=== PATIENT | male | born 1955 | race Caucasian/White ===

== ENCOUNTER 2018-01-16 18:31 | Emergency (ER) | payer OTHER ==
[2018-01-16] MEDS ORDERED: Diatrizoate Meglumine/Diatrizoate Sodium 37% 30 ML Bottle PO ONE (19:39)
[2018-01-16] MEDS ORDERED: Iopamidol 755 Mg/ML 100 ML Bottle IV ONE (19:39)
--- NOTE | 2018-01-16 21:45 | EDM.PDOC ---
ED HPI GENERAL MEDICAL PROBLEM - General Chief Complaint: Abdominal Pain Stated Complaint: SLOWER ADB PAIN Time Seen by Provider: 01/16/18 18:45 Source of Information: Reports: Patient History Limitations: Reports: No Limitations - History of Present Illness INITIAL COMMENTS - FREE TEXT/NARRATIVE: 62 y.o.w.m s/p joce inguinal hernia repair, appendectomy, came to the ed because of pain at his right lower quadrant of his abdomen. Pt stated, it feels to him like a inguinal hernia again. Pain is worse in upright position. No N/V/D no dizziness or any other acute medical issues. Pt did not take any pain meds. BP 147/74 puls 76 RR 20 Pulseox 98 Temp 36.8 Onset Date: 01/12/18 Onset Time: 07:00 Duration: Day(s):, Intermittent, Recurring Location: Reports: Abdomen Quality: Reports: Ache, Burning, Dull Severity: Mild Improves with: Reports: Rest Worsens with: Reports: Movement Context: Reports: Other (S/P right and left inguinal hernia repair in the distent past. ) Right Groin Pain Score (Numeric/FACES): 5 - Related Data Allergies Allergy/AdvReac Type Severity Reaction Status Date / Time esomeprazole magnesium Allergy Hives Verified 01/16/18 18:49 [From Nexium] meperidine HCl [From Demerol] Allergy Shortness Verified 01/16/18 18:49 of Breath Home Meds: Home Meds Metoprolol Succinate [Toprol XL 100mg] 100 mg PO BEDTIME #30 tab.er 10/12/16 [Rx ] Aspirin [Halfprin] 81 mg PO BEDTIME 01/16/18 [History] Cholecalciferol (Vitamin D3) [Vitamin D] 5,000 unit PO BEDTIME 01/16/18 [History ] Famotidine 40 mg PO BEDTIME 01/16/18 [History] Imipramine HCl 25 mg PO BEDTIME 01/16/18 [History] Past Medical History Cardiovascular History: Reports: Hypertension - Past Surgical History HEENT Surgical History: Reports: Other (See Below) GI Surgical History: Reports: Appendectomy, Hernia, Inguinal Social & Family History - Tobacco Use Smoking Status *Q: Never Smoker Years of Tobacco use: 15 Packs/Tins Daily: 1 Used Tobacco, but Quit: Yes Month Tobacco Last Used: UNKNOWN Second Hand Smoke Exposure: No - Caffeine Use Caffeine Use: Reports: Coffee - Recreational Drug Use Recreational Drug Use: No ED ROS GENERAL - Review of Systems Review Of Systems: See Below Constitutional: Reports: No Symptoms HEENT: Reports: No Symptoms Respiratory: Reports: No Symptoms Cardiovascular: Reports: No Symptoms Endocrine: Reports: No Symptoms GI/Abdominal: Reports: Abdominal Pain (Right lower abdomen) : Reports: No Symptoms Musculoskeletal: Reports: No Symptoms Skin: Reports: No Symptoms Neurological: Reports: No Symptoms Psychiatric: Reports: No Symptoms Hematologic/Lymphatic: Reports: No Symptoms Immunologic: Reports: No Symptoms ED EXAM, GI/ABD - Physical Exam Exam: See Below Exam Limited By: No Limitations General Appearance: Alert, WD/WN, Mild Distress Eyes: Bilateral: Normal Appearance Ears: Normal External Exam Nose: Normal Inspection Throat/Mouth: Normal Inspection, Normal Lips Head: Atraumatic, Normocephalic Neck: Normal Inspection, Supple, Non-Tender Respiratory/Chest: No Respiratory Distress, Lungs Clear, Normal Breath Sounds Cardiovascular: Normal Peripheral Pulses, Regular Rate, Rhythm, No Edema GI/Abdominal Exam: No Mass, Hernia (possible right sided inguinal hernia), Hepatomegaly (Male) Exam: Hernia (possible right side) Rectal (Males) Exam: Deferred Back Exam: Normal Inspection Extremities: Normal Inspection Neurological: Alert, Oriented, CN II-XII Intact, Normal Cognition, Normal Gait Psychiatric: Normal Affect, Normal Mood Skin Exam: Warm, Dry, Intact, Normal Color, No Rash Lymphatic: No Adenopathy Course - Vital Signs Text/Narrative:: 62 y.o.w.m s/p joce inguinal hernia repair, appendectomy, came to the ed because of pain at his right lower quadrant of his abdomen. Pt stated, it feels to him like a inguinal hernia again. Pain is worse in upright position. No N/V/D no dizziness or any other acute medical issues. Pt did not take any pain meds. BP 147/74 puls 76 RR 20 Pulseox 98 Temp 36.8 PE: WNWD W M with R L Q abd. pain, S/P appendectomy S/P inguinal Hernia repair on both sides Labs: CBC nl BMP pos for K 3.2 Imaging: Sigmoid diverticulosis, Hepatomegaly, enlarged prostate, Constipation, Divrticula in bladder, No hernoia was seen Impression:Sigmoid diverticulosis, Hepatomegaly, enlarged prostate, Constipation , Divrticula in bladder. Hypokalemia, dehydration Tx: Potassium, Pt refused pain meds Plan: D/C with instructions Last Recorded V/S: Last Vital Signs Temp 36.8 C 01/16/18 21:47 Pulse 81 01/16/18 21:47 Resp 15 01/16/18 21:47 BP 136/88 01/16/18 21:47 Pulse Ox 100 01/16/18 21:47 - Orders/Labs/Meds Orders: Active Orders 24 hr Category Date Time Status Abdomen Pelvis w Cont [CT] Stat Exams 01/16/18 18:43 Ordered Labs: Laboratory Tests 01/16/18 01/16/18 01/16/18 Range/Units 18:53 18:53 18:53 WBC 8.8 (4.5-12.0) X10-3/uL RBC 4.99 (4.30-5.75) x10(6)uL Hgb 14.3 (11.5-15.5) g/dL Hct 42.0 (30.0-51.3) % MCV 84.2 (80-96) fL MCH 28.7 (27.7-33.6) pg MCHC 34.1 (32.2-35.4) g/dL RDW 12.3 (11.5-15.5) % Plt Count 215 (125-369) X10(3)uL MPV 9.0 (7.4-10.4) fL Neut % (Auto) 46.8 (46-82) % Lymph % (Auto) 39.5 H (13-37) % [place] % (Auto) 11.6 (4-12) % Eos % (Auto) 1 (1.0-5.0) % Baso % (Auto) 1 (0-2) % Neut # (Auto) 4.1 (1.6-8.3) # Lymph # (Auto) 3.5 (0.6-5.0) # [place] # (Auto) 1.0 (0.0-1.3) # Eos # (Auto) 0.1 (0.0-0.8) # Baso # (Auto) 0.1 (0.0-0.2) # PT 10.6 (8.7-11.1) INR 1.05 (0.89-1.13) Sodium 143 (135-145) mmol/L Potassium 3.2 L (3.5-5.3) mmol/L Chloride 106 (100-110) mmol/L Carbon Dioxide 24 (21-32) mmol/L BUN 22 H (7-18) mg/dL Creatinine 0.8 (0.70-1.30) mg/dL Est Cr Clr Drug Dosing TNP Estimated GFR (MDRD) > 60 (>60) BUN/Creatinine Ratio 27.5 H (9-20) Glucose 103 (80-116) mg/dL Calcium 8.2 L (8.6-10.2) mg/dL Urine Color (YELLOW) Urine Appearance (CLEAR) Urine pH (5.0-6.5) Ur Specific [place] (1.010-1.025) Urine Protein (NEGATIVE) mg/dL Urine Glucose (UA) (NEGATIVE) mg/dL Urine Ketones (NEGATIVE) mg/dL Urine Occult Blood (NEGATIVE) Urine Nitrite (NEGATIVE) Urine Bilirubin (NEGATIVE) Urine Urobilinogen (NEGATIVE) mg/dL Ur Leukocyte Esterase (NEGATIVE) Urine RBC (0) Urine WBC (0) Ur Squamous Epith Cells (NS,R,O) Urine Bacteria (NS) 01/16/18 Range/Units 19:03 WBC (4.5-12.0) X10-3/uL RBC (4.30-5.75) x10(6)uL Hgb (11.5-15.5) g/dL Hct (30.0-51.3) % MCV (80-96) fL MCH (27.7-33.6) pg MCHC (32.2-35.4) g/dL RDW (11.5-15.5) % Plt Count (125-369) X10(3)uL MPV (7.4-10.4) fL Neut % (Auto) (46-82) % Lymph % (Auto) (13-37) % [place] % (Auto) (4-12) % Eos % (Auto) (1.0-5.0) % Baso % (Auto) (0-2) % Neut # (Auto) (1.6-8.3) # Lymph # (Auto) (0.6-5.0) # [place] # (Auto) (0.0-1.3) # Eos # (Auto) (0.0-0.8) # Baso # (Auto) (0.0-0.2) # PT (8.7-11.1) INR (0.89-1.13) Sodium (135-145) mmol/L Potassium (3.5-5.3) mmol/L Chloride (100-110) mmol/L Carbon Dioxide (21-32) mmol/L BUN (7-18) mg/dL Creatinine (0.70-1.30) mg/dL Est Cr Clr Drug Dosing Estimated GFR (MDRD) (>60) BUN/Creatinine Ratio (9-20) Glucose (80-116) mg/dL Calcium (8.6-10.2) mg/dL Urine Color Yellow (YELLOW) Urine Appearance Clear (CLEAR) Urine pH 5.0 (5.0-6.5) Ur Specific [place] 1.025 (1.010-1.025) Urine Protein Negative (NEGATIVE) mg/dL Urine Glucose (UA) Normal (NEGATIVE) mg/dL Urine Ketones Negative (NEGATIVE) mg/dL Urine Occult Blood Negative (NEGATIVE) Urine Nitrite Negative (NEGATIVE) Urine Bilirubin Negative (NEGATIVE) Urine Urobilinogen Normal (NEGATIVE) mg/dL Ur Leukocyte Esterase Negative (NEGATIVE) Urine RBC 0-5 (0) Urine WBC 0-5 (0) Ur Squamous Epith Cells Rare (NS,R,O) Urine Bacteria Occasional H (NS) Meds: Medications Discontinued Medications Generic Name Dose Route Start Last Admin Trade Name Freq PRN Reason Stop Dose Admin Diatrizoate Meglum/Diatrizoate Sod 30 ml 01/16/18 19:39 01/16/18 20:49 Gastrografin 37% PO 01/16/18 19:40 30 ml . DIRECTED ONE Administration Iopamidol 100 ml 01/16/18 19:39 01/16/18 20:49 Isovue-370 (76%) IV 01/16/18 19:40 100 ml . DIRECTED ONE Administration Potassium Chloride 40 meq 01/16/18 21:49 01/16/18 21:55 Klor-Con M20 PO 01/16/18 21:50 40 meq ONETIME ONE Administration Departure - Departure Time of Disposition: 21:44 Disposition: Home, Self-Care 01 Condition: Good Clinical Impression: Enlarged prostate, Sigmoid diverticulosis, Diverticula, bladder, Hypokalemia, Dehydration, Hepatomegaly Constipation Qualifiers: Constipation type: slow transit constipation Qualified Code(s): K59.01 - Slow transit constipation - Discharge Information Instructions: Diverticulosis Referrals: Yakov Olguin MD [Primary Care Provider] - Forms: ED Department Discharge Additional Instructions: please increase water intake, take a laxative or eat oatmeal daily, please f/u with your doctor, come back to the ed if your symptoms get worse acutely. - My Orders Last 24 Hours: My Active Orders 01/16/18 18:43 Abdomen Pelvis w Cont [CT] Stat - Assessment/Plan Last 24 Hours: My Active Orders 01/16/18 18:43 Abdomen Pelvis w Cont [CT] Stat
[2018-01-16 21:49] VITALS: BP 136/88
[2018-01-16] MEDS ORDERED: Potassium Chloride 20 MEQ Tab.ER PO ONE (21:49)
== END 2018-01-16 22:05 | disposition home or self-care (01) ==
LOC: FB.ED 18:31
DX: K57.30 Diverticulosis of large intestine without perforation or abscess without bleeding (principal); N40.0 Benign prostatic hyperplasia without lower urinary tract symptoms; E87.6 Hypokalemia; E86.0 Dehydration; R16.0 Hepatomegaly, not elsewhere classified; K59.01 Slow transit constipation; I10 Essential (primary) hypertension; Z88.8 Allergy status to other drugs, medicaments and biological substances
CPT/HCPCS: 36415; 74177; 80048; 81001; 85025; 85610; 99284; A9270-GY; Q9967

== ENCOUNTER 2022-03-24 07:19 | Day surgery (SDC) | payer MEDICARE ==
[~2022-03-24 07:19] MED LIST: Lactated Ringers 1,000 ML IV SCH; Sodium Chloride 0.9% 10 ML Syringe FLUSH PRN
[2022-03-24] MEDS ORDERED: Propofol 200 MG/20 ML SDV IV ONE (07:20)
[2022-03-24 11:34] VITALS: BP 109/72; PULSE 63
== END 2022-03-24 11:15 | disposition home or self-care (01) ==
LOC: FB.SDS 07:19
PROVIDERS: ATTEND Surgery
DX: Z12.11 Encounter for screening for malignant neoplasm of colon (principal); D12.6 Benign neoplasm of colon, unspecified; K57.30 Diverticulosis of large intestine without perforation or abscess without bleeding; Z79.899 Other long term (current) drug therapy; Z88.8 Allergy status to other drugs, medicaments and biological substances; Z90.49 Acquired absence of other specified parts of digestive tract; Z98.890 Other specified postprocedural states
CPT/HCPCS: 00812-QZ; 88305; J2704; J7120

== ENCOUNTER 2024-09-20 19:53 | Emergency (ER) | payer MEDICARE, OTHER ==
[2024-09-20] MEDS ORDERED: Sodium Chloride 0.9% 10 ML Syringe FLUSH PRN (19:54)
[2024-09-20 20:11] LABS: BASOPHILS PERCENT AUTO 0.3 % (0.3-3.8); EOSINOPHILS ABSOLUTE AUTO 0.3 x10-3/uL (0.0-0.6); EOSINOPHILS PERCENT AUTO 2.1 % (0.1-6.8); HEMATOCRIT 47.4 % (38.3-50.1); LYMPHOCYTES ABSOLUTE AUTO 4.4 x10-3/uL (0.5-4.5); LYMPHOCYTES PERCENT AUTO 34.3 % (15.8-45.3); MEAN CORPUSCULAR HGB CONC 33.9 g/dL (28.7-35.3); MEAN CORPUSCULAR VOLUME 85.8 fL (80.8-98.7); MONOCYTES ABSOLUTE AUTO 1.5 x10-3/uL (0.0-1.2); MONOCYTES PERCENT AUTO 11.4 % (5.5-15.2); NEUTROPHILS ABSOLUTE AUTO 6.6 x10-3/uL (1.7-6.9); NEUTROPHILS PERCENT AUTO 51.9 % (40.3-71.8); PLATELET COUNT,PLT 294 x10(3)uL (117-477); RED BLOOD CELL COUNT 5.52 x10(6)uL (3.90-5.90); RED CELL DISTRIBUTION WIDTH 13.2 % (12.4-15.0); WHITE BLOOD CELL COUNT,WBC 12.7 x10-3/uL (3.2-10.1)
[2024-09-20 20:13] LABS: BLOOD UREA NITROGEN,BUN 12 mg/dL (7-18); CALCIUM 8.6 mg/dL (8.6-10.2); CARBON DIOXIDE,CO2 26 mmol/L (21-32); CHLORIDE,CL 101 mmol/L (100-110); ESTIMATED GFR 81 mL/min (>60); GLUCOSE RANDOM 136 mg/dL (80-116); POTASSIUM,K 3.3 mmol/L (3.5-5.3); SODIUM,NA 139 mmol/L (135-145)
[2024-09-20 20:19] LABS: A/G RATIO 0.9; ALANINE AMINOTRANSFERASE,ALT 102 U/L (12-36); ALBUMIN 3.5 g/dL (3.2-4.6); ALKALINE PHOSPHATASE 97 IU/L (56-112); ASPARTATE AMNIOTRANSFERASE,AST 69 IU/L (5-25); BILIRUBIN TOTAL 0.7 mg/dL (0.1-1.3); PROTEIN TOTAL,TP 7.6 g/dL (6.0-8.0)
[2024-09-20 20:21] VITALS: BP 125/74; PULSE 82
[2024-09-20 20:24] LABS: INR 1.04 (1.00-1.24); PROTHROMBIN TIME 10.8 sec (9.0-11.1); PTT,PARTIAL THROMBOPLSTIN TIME 32.1 SECONDS (24.4-33.2)
[2024-09-20] MEDS: Sodium Chloride 0.9% 1,000 ML IV ONE (20:49)
[2024-09-21 13:41] LABS: CORONAVIRUS COVID-19 NAA NEGATIVE (NEGATIVE)
[2024-09-21 13:42] LABS: INFLUENZA A NAA NEGATIVE (NEGATIVE); INFLUENZA B NAA NEGATIVE (NEGATIVE); RESPIRATORY SYNCYTIAL VIR NAA NEGATIVE (NEGATIVE)
== END 2024-09-20 21:55 | disposition home or self-care (01) ==
LOC: FB.ED 19:53
DX: R55 Syncope and collapse (principal); E78.00 Pure hypercholesterolemia, unspecified; I10 Essential (primary) hypertension; F17.210 Nicotine dependence, cigarettes, uncomplicated; Z79.899 Other long term (current) drug therapy; Z88.8 Allergy status to other drugs, medicaments and biological substances; Z88.5 Allergy status to narcotic agent; Z88.6 Allergy status to analgesic agent
CPT/HCPCS: 0241U; 36415; 70450; 71045; 80053; 84484; 85025; 85610; 85730; 93005; 93010; 96360; 99283; 99285; J7030